=== PATIENT | male | born 1955 | race Caucasian/White ===

== ENCOUNTER → 2017-12-26 | Outpatient (CLI) | payer BC ==
--- NOTE | 2017-12-26 16:28 | MR ---
EXAMINATION TYPE: MR brain wo/w con DATE OF EXAM: 12/26/2017 COMPARISON: NONE HISTORY: Tremors Right Hand,Gadavist 7.5 CONTRAST: Performed utilizing 7.5 mL intravenous Gadavist gadolinium contrast. TECHNIQUE: Multiplanar, multiecho imaging on a 3.0 Ashleigh magnet is performed through the brain. Stud y is performed within 24 hours of arrival to the hospital. The craniovertebral junction is normal. The pituitary is normal. Diffusion-weighted imaging is performed. No abnormal hyperintensity is present to suggest an acute i ntracranial infarct or acute ischemic change. Some vague diffuse increased signal may be within the deep white matter most likely on the basis of c hronic white matter ischemic change. No abnormal enhancement is evident. No mass effect is evident. Temporal horns appear normal. Ventricles and sulci are appropriate for the patient age. IMPRESSIONS: 1. Minimal white matter ischemic type change. 2. No acute intracranial process evident.
== END ==
LOC: RADMRIMAIN 14:48
PROVIDERS: ATTEND Family Medicine
DX: R90.82 White matter disease, unspecified (principal); I67.82 Cerebral ischemia; G25.2 Other specified forms of tremor
CPT/HCPCS: 82565; 70553; 36415; A9581

== ENCOUNTER 2020-06-16 22:53 | Observation (INO) | payer BC, MEDICARE ==
--- NOTE | 2020-06-16 23:10 | ED ---
Chest Pain HPI - General Chief Complaint: Chest Pain Stated Complaint: Chest Pain Time Seen by Provider: 06/16/20 23:09 Source: patient, RN notes reviewed, old records reviewed Mode of arrival: wheelchair Limitations: no limitations - History of Present Illness Initial Comments: This is a 64-year-old male with high blood pressure high cholesterol family history of heart disease coming in with left arm tenderness to going on for a week or so and chest pain started tonight with yesterday and today. Patient gets some tightness and comes and goes with no real shortness of breath or sweating. No prior history of heart disease himself or prior evaluation for heart disease. Patient still having left-sided chest pain here in the ER. No recent fevers travel or sick contacts MD Complaint: chest pain -: days(s) Onset: during rest, during exertion, awoke with symptoms Pain Location: substernal, left chest Pain Radiation: LUE Severity: mild Severity scale (1-10): 2 Quality: tightness, heaviness Consistency: intermittent Worsens With: nothing Context: other (None) Anginal Symptoms: other Other Symptoms: other (None) Treatments Prior to Arrival: none (None) - Related Data Allergies Allergy/AdvReac Type Severity Reaction Status Date / Time No Known Allergies Allergy Verified 06/16/20 22:59 Review of Systems ROS Statement: Those systems with pertinent positive or pertinent negative responses have been documented in the HPI. ROS Other: All systems not noted in ROS Statement are negative. EKG Findings - EKG Comments: EKG Findings:: EKG is sinus bradycardia 55 pr 178 QRS 90 QTC 394 Past Medical History Past Medical History: Hyperlipidemia, Hypertension History of Any Multi-Drug Resistant Organisms: None Reported Past Surgical History: Cholecystectomy, Hernia Repair Past Psychological History: Anxiety Smoking Status: Never smoker Past Alcohol Use History: None Reported Past Drug Use History: None Reported General Exam Limitations: no limitations General appearance: alert, in no apparent distress Head exam: Present: atraumatic, normocephalic, normal inspection Eye exam: Present: normal appearance, PERRL, EOMI. Absent: scleral icterus, conjunctival injection, periorbital swelling ENT exam: Present: normal exam, mucous membranes moist Neck exam: Present: normal inspection. Absent: tenderness, meningismus, lymphadenopathy Respiratory exam: Present: normal lung sounds bilaterally. Absent: respiratory distress, wheezes, rales, rhonchi, stridor Cardiovascular Exam: Present: regular rate, normal rhythm, normal heart sounds. Absent: systolic murmur, diastolic murmur, rubs, gallop, clicks GI/Abdominal exam: Present: soft, normal bowel sounds. Absent: distended, tenderness, guarding, rebound, rigid Extremities exam: Present: normal inspection, full ROM, normal capillary refill. Absent: tenderness, pedal edema, joint swelling, calf tenderness Back exam: Present: normal inspection Neurological exam: Present: alert, oriented X3, CN II-XII intact Psychiatric exam: Present: normal affect, normal mood Skin exam: Present: warm, dry, intact, normal color. Absent: rash Course Vital Signs 06/16/20 06/17/20 22:56 00:05 Temperature 97.6 F 98.1 F Pulse Rate 56 L 55 L Respiratory 18 18 Rate Blood Pressure 153/89 132/79 O2 Sat by Pulse 99 97 Oximetry - Reevaluation(s) Reevaluation #1: 06/17/20 00:26 Medical record is reviewed Reevaluation #2: 06/17/20 00:26 Patient has recurrent and episodic chest pain here in the ER Reevaluation #3: 06/17/20 00:26 Spoke with patient and family regarding findings, questions are answered - Consultations Consultation #1: Spoke with jerry who agrees to admit this patient Chest Pain MDM - MDM 64 male DF for evaluation high blood pressure high cholesterol as well as family history of heart disease and chest pain today. Occasional left arm numbness and tingling. Patient be admitted for cardiac observation Disposition Clinical Impression: Chest pain Disposition: ADMITTED IP TO THIS HOSP Condition: Undetermined Instructions (If sedation given, give patient instructions): Chest Pain (ED) Is patient prescribed a controlled substance at d/c from ED?: No Referrals: Wilmer Martini MD [Primary Care Provider] - 1-2 days
[2020-06-16 23:39] LABS: Basophils # (A) 0.1 k/uL (0-0.2); Basophils % (A) 1 %; Eosinophils # (A) 0.3 k/uL (0-0.7); Eosinophils % (A) 5 %; HCT 50.5 % (39.0-53.0); Lymphocytes # (A) 2.4 k/uL (1.0-4.8); Lymphocytes % (A) 33 %; MCH 31.2 pg (25.0-35.0); MCHC 33.6 g/dL (31.0-37.0); MCV 92.6 fL (80.0-100.0); Mean Platelet Volume 6.9; Monocytes # (A) 0.5 k/uL (0-1.0); Monocytes % (A) 7 %; Neutrophils # (A) 3.9 k/uL (1.3-7.7); Neutrophils % (A) 52 %; Platelet Count 172 k/uL (150-450); RBC 5.46 m/uL (4.30-5.90); RDW 11.9 % (11.5-15.5); WBC 7.4 k/uL (3.8-10.6)
[2020-06-16 23:50] LABS: Albumin 4.2 g/dL (3.5-5.0); Calcium 9.5 mg/dL (8.4-10.2); Potassium 4.5 mmol/L (3.5-5.1); Total Bilirubin 1.7 mg/dL (0.2-1.3); Total Protein 6.6 g/dL (6.3-8.2)
--- NOTE | 2020-06-16 23:51 | XR ---
EXAMINATION TYPE: XR chest 2V DATE OF EXAM: 06/16/2020 COMPARISON: NONE HISTORY: Chest pain TECHNIQUE: 2 views FINDINGS: Heart is normal. Lungs are clear of infiltrate. There is no heart failure. There are no hil ar masses. Costophrenic angles are clear. There are chest leads. IMPRESSION: No active cardiopulmonary disease. Atheromatous aorta.
[2020-06-16 23:56] LABS: INR 0.9 (<1.2); Partial Thromboplastin Time 22.6 sec (22.0-30.0); Prothrombin Time 9.8 sec (9.0-12.0)
[2020-06-17] MEDS ORDERED: ASPIRIN 81 MG PO STA (01:09)
[2020-06-17] MEDS ORDERED: NITROGLYCERIN SL TABS 0.4 MG TAB SUBLINGUAL PRN (01:09)
--- NOTE | 2020-06-17 04:20 | P.HPIM ---
History of Present Illness H&P Date: 06/17/20 The patient is a 64-year-old male with a PMH of hypertension and hyperlipidemia who presents to the ED with complaints of chest discomfort. Patient reports that he has been having occasional nonexertional left-sided chest discomfort for the past 2 months. He notes that the frequency has increased gradually and that has had it multiple times yesterday which brought him to come to the emergency room. He is unable to quantify the pain but notes that it is possibly sharp in nature, nonpleuritic, 2-4 out of 10, nonradiating, with no associated features, and no clear alleviating or exacerbating features. Notes that the pain lasts upwards of 20 seconds at a time. He denied associated shortness of breath, nausea, vomiting, palpitations, or dizziness. Also denied fever, chills, cough, abdominal pain, or diarrhea. He reports no prior heart disease history and no family history of premature coronary artery disease. In the emergency room a chest x-ray was unremarkable with EKG showing sinus bradycardia at [address]/T-wave changes noted as reviewed by me. Laboratory evaluation was reviewed with troponin less than 0.012. Review of Systems Pertinent positives and negatives as discussed in HPI, a complete review of systems was performed and all other systems are negative. Past Medical History Past Medical History: Hyperlipidemia, Hypertension History of Any Multi-Drug Resistant Organisms: None Reported Past Surgical History: Cholecystectomy, Hernia Repair Past Psychological History: Anxiety Smoking Status: Never smoker Past Alcohol Use History: None Reported Past Drug Use History: None Reported - Past Family History Mother Family Medical History: CVA/TIA, Diabetes Mellitus Father Family Medical History: Diabetes Mellitus Medications and Allergies Allergies Allergy/AdvReac Type Severity Reaction Status Date / Time No Known Allergies Allergy Verified 06/16/20 22:59 Physical Exam Vitals: Vital Signs Temp Pulse Pulse Resp BP BP Pulse Ox 06/17/20 01:19 98.1 F 52 L 17 143/85 97 06/17/20 01:05 58 L 18 136/88 98 06/17/20 00:05 98.1 F 55 L 18 132/79 97 06/16/20 22:56 97.6 F 56 L 18 153/89 99 Intake and Output 06/16/20 06/16/20 06/17/20 14:59 22:59 06:59 Other: Weight 79.832 kg 79.832 kg General: non toxic, no distress, appears at stated age, normal weight Derm: no unusual rashes/lesions no unusual ecchymoses, warm, dry Head: atraumatic, normocephalic, symmetric Eyes: EOMI, no lid lag, anicteric sclera, pupils equal round reactive to light ENT: Nose and ears atraumatic, no thrush, no pharyngeal erythema Neck: No thyromegaly, no cervical lymphadenopathy, trachea midline, supple Mouth: no lip lesion, mucus membranes moist Cardiovascular: S1S2 reg, no murmur, positive posterior tibial pulse bilateral, no edema, capillary refill less than 2 seconds Lungs: CTA bilateral, no rhonchi, no rales , no accessory muscle use Abdominal: soft, nontender to palpation, no guarding, no appreciable organomegaly, normal bowel sounds Ext: no gross muscle atrophy, muscle strength 5 out of 5 in all 4 extremities grossly, no contractures, Neuro: CN II-XI grossly intact, light touch intact all 4 extremities, finger to nose within normal limits, Psych: Alert, oriented, appropriate affect Results CBC & Chem 7: 06/16/20 23:21 06/16/20 23:21 Labs: Abnormal Lab Results - Last 24 Hours (Table) 06/16/20 Range/Units 23:21 BUN 22 H (9-20) mg/dL Glucose 113 H (74-99) mg/dL Total Bilirubin 1.7 H (0.2-1.3) mg/dL Thrombosis Risk Factor Assmnt - Choose All That Apply Each Factor Represents 1 point: Obesity (BMI >25) Each Risk Factor Represents 2 Points: Age 61-74 years Each Risk Factor Represents 3 Points: Family history of DVT/PE Other congenital or acquired thrombophilia - If yes, enter type in comment: No Thrombosis Risk Factor Assessment Total Risk Factor Score: 6 Thrombosis Risk Factor Assessment Level: High Risk Assessment and Plan Plan: Chest pain, rule out ACS -Cardiology consult -Cardiac monitoring -Trend troponin -Continue with aspirin Chronic conditions: Hypertension, hyperlipidemia -Continue with home meds DVT prophylaxis -Heparin subq The patient is admitted with an anticipated less than 2 midnight stay for evaluation of chest pain CODE STATUS: Full Code Discussed with: Patient Anticipated discharge date: in am Anticipated discharge place: Home A total of 35 minutes was spent on the care of this complex patient more than 50 % of the time was spent in counseling and care coordination.
[2020-06-17 07:54] VITALS: BP 146/59; PULSE 63; RESP 16; TEMP 97.5
[2020-06-17] MEDS ORDERED: METOPROLOL SUCCINATE (ER) 50 MG TAB.ER.24H PO SCH ×2 (09:00)
[2020-06-17] MEDS ORDERED: lisinopriL 10 MG TAB PO SCH (09:00)
--- NOTE | 2020-06-17 10:43 | ECHOF ---
Referral Reason:chest pain MEASUREMENTS -------- HEIGHT: 175.3 cm WEIGHT: 79.8 kg BP: 143/85 RVIDd: 3.3 cm (< 3.3) IVSd: 1.2 cm (0.6 - 1.1) LVIDd: 4.2 cm (3.9 - 5.3) LVPWd: 1.2 cm (0.6 - 1.1) IVSs: 1.7 cm LVIDs: 2.7 cm LVPWs: 1.6 cm LA Diam: 3.0 cm (2.7 - 3.8) LAESV Index (A-L): 14.67 ml/m Ao Diam: 2.6 cm (2.0 - 3.7) AV Cusp: 1.9 cm (1.5 - 2.6) MV EXCURSION: 20.824 mm (> 18.000) MV EF SLOPE: 121 mm/s (70 - 150) EPSS: 0.3 cm MV E Gaston: 0.71 m/s MV DecT: 231 ms MV A Gaston: 0.53 m/s MV E/A Ratio: 1.32 RAP: 5.00 mmHg RVSP: 26.04 mmHg FINDINGS -------- Sinus rhythm. This was a technically adequate study. The left ventricular size is normal. There is borderline concentric left ventricular hypertrophy. Overall left ventricular systolic function is normal with, an EF between 55 - 60 %. The right ventricle is mildly enlarged. Normal LA size by volume 22+/-6 ml/m2. The right atrial size is normal. Interatrial and interventricular septum intact. Aortic valve is trileaflet and is mildly thickened. Trace amount of aortic regurgitation. The mitral valve is normal. Mild mitral regurgitation is present. Mild tricuspid regurgitation present. Right ventricular systolic pressure is normal at < 35 mmHg. There is no pulmonic regurgitation present. The aortic root size is normal. Normal inferior vena cava with normal inspiratory collapse consistent with estimated right atrial pre ssure of 5 mmHg. There is no pericardial effusion. CONCLUSIONS -------- 1. There is borderline concentric left ventricular hypertrophy. 2. Overall left ventricular systolic function is normal with, an EF between 55 - 60 %. 3. The right ventricle is mildly enlarged. 4. Normal LA size by volume 22+/-6 ml/m2. 5. Trace amount of aortic regurgitation. 6. Mild mitral regurgitation is present. 7. Mild tricuspid regurgitation present. 8. There is no pericardial effusion. SNATH HANDLE ASSEMBLER: Chayito Drake RDCS
--- NOTE | 2020-06-17 10:43 | ECHOS ---
STRESS ECHOCARDIOGRAM INDICATIONS: Chest pain. MEDICATIONS: Lopressor, Vasotec, Lipitor. BASELINE HEART RATE: 58 BASELINE BLOOD PRESSURE: 132/75 MAXIMUM HEART RATE: 152 MAXIMUM BLOOD PRESSURE: 184/73 85% MPHR: 132 100% MPHR: 155 METS: 11.1 MAXIMUM STAGE REACHED: IV TOTAL EXERCISE TIME: 9:32 CLINICAL INFORMATION: Baseline rhythm is a sinus mechanism, rate of 58, normal axis and intervals. Normal echocardiogram. Baseline blood pressure 132/75 mmHg. Patient exercised on Jareth protocol for 9 minutes 32 seconds reaching peak rate 152 beats per minute which is equal to 98% maximum predicted heart rate. Peak blood pressure 184/73 mmHg. Test was terminated due to fatigue. There was no chest pain. Electrocardiograph monitoring revealed rare PVCs. There was no evidence of diagnostic ischemic ST deviation. FINDINGS: Baseline echocardiogram revealed normal wall motion. At peak exercise, there was normal wall motion augmentation with no hypokinesis or dyskinesis. CONCLUSION: 1. One good exercise tolerance with rare PVCs with normal electrocardiograph response to exercise. 2. Normal stress echocardiogram with no evidence of stress-induced ischemia. MMODL / IJN: [id number] /
--- NOTE | 2020-06-17 11:26 | P.CRDCN ---
History of Present Illness Consult date: 06/17/20 Consult reason: chest pain Chief complaint: Chest pain History of present illness: This is a pleasant 64-year-old gentleman with documented history of hypertension, hyperlipidemia, he is a nondiabetic, no smoker, no family history of premature coronary artery disease who presented to the hospital with symptoms of left-sided chest pain which she describes as a pressure sensation with an associated sharp pain. The pain comes and goes, nonradiating, no discomfort in his jaws were in his arm, no radiation to the back. He denies any associated symptoms of shortness of breath, nausea or diaphoresis. Patient states that the symptoms last 15-20 seconds in duration. His chest x-ray on presentation here did not reveal any acute disease EKG showed sinus bradycardia with early repolarization changes. Blood pressure 143/80 heart rate in the 60s respirations 1697% on room air. White blood cell count 7.4, hemoglobin 17, platelet count 172. Sodium 139, potassium 4.5, BUN 22, creatinine 1.0. Magnesium 2.0 troponins negative 3. At the time of my examination this morning, patient is currently free of any chest discomfort. Past Medical History Past Medical History: Hyperlipidemia, Hypertension History of Any Multi-Drug Resistant Organisms: None Reported Past Surgical History: Cholecystectomy, Hernia Repair Past Psychological History: Anxiety Smoking Status: Never smoker Past Alcohol Use History: None Reported Past Drug Use History: None Reported - Past Family History Mother Family Medical History: CVA/TIA, Diabetes Mellitus Father Family Medical History: Diabetes Mellitus Medications and Allergies Home Medications Medication Instructions Recorded Confirmed Type Atorvastatin [Lipitor] 20 mg PO HS 06/17/20 06/17/20 History Enalapril Maleate [Vasotec] 10 mg PO BID 06/17/20 06/17/20 History Metoprolol Tartrate [Lopressor] 50 mg PO BID 06/17/20 06/17/20 History Allergies Allergy/AdvReac Type Severity Reaction Status Date / Time No Known Allergies Allergy Verified 06/17/20 07:38 Physical Exam Vitals: Vital Signs Temp Pulse Pulse Resp BP BP Pulse Ox 06/17/20 07:51 97.5 F L 63 16 146/59 95 06/17/20 01:19 98.1 F 52 L 17 143/85 97 06/17/20 01:05 58 L 18 136/88 98 06/17/20 00:05 98.1 F 55 L 18 132/79 97 06/16/20 22:56 97.6 F 56 L 18 153/89 99 Intake and Output 06/16/20 06/17/20 06/17/20 22:59 06:59 14:59 Other: Voiding Method Toilet Weight 79.832 kg 79.832 kg 79.83 kg PHYSICAL EXAMINATION: GENERAL: 64-year-old gentleman in no acute distress at the time of my examination HEENT: Head is atraumatic, normocephalic. Pupils equal, round. Sclera anicteric. Conjunctiva are clear. Mucous membranes of the mouth are moist. Neck is supple. There is no elevated jugular venous pressure. No carotid bruit is heard. HEART EXAMINATION: Heart S1, S2 normal. No murmur or gallop heard. CHEST EXAMINATION: Lungs are clear to auscultation and precussion. No chest wall tenderness is noted on palpation or with deep breathing. ABDOMEN: Soft, nontender. Bowel sounds are heard. No organomegaly noted. EXTREMITIES: 2+ peripheral pulses with no evidence of peripheral edema and no calf tenderness noted. NEUROLOGIC patient is awake, alert and oriented 3 . . Results 06/16/20 23:21 06/16/20 23:21 Cardiac Enzymes 06/16/20 06/16/20 06/17/20 Range/Units 23:21 23:21 02:30 AST 23 (17-59) U/L Troponin I <0.012 <0.012 (0.000-0.034) ng/mL 06/17/20 Range/Units 05:08 AST (17-59) U/L Troponin I <0.012 (0.000-0.034) ng/mL Coagulation 06/16/20 Range/Units 23:21 PT 9.8 (9.0-12.0) sec APTT 22.6 (22.0-30.0) sec CBC 06/16/20 Range/Units 23:21 WBC 7.4 (3.8-10.6) k/uL RBC 5.46 (4.30-5.90) m/uL Hgb 17.0 (13.0-17.5) gm/dL Hct 50.5 (39.0-53.0) % Plt Count 172 (150-450) k/uL Comprehensive Metabolic Panel 06/16/20 Range/Units 23:21 Sodium 139 (137-145) mmol/L Potassium 4.5 (3.5-5.1) mmol/L Chloride 106 (98-107) mmol/L Carbon Dioxide 26 (22-30) mmol/L BUN 22 H (9-20) mg/dL Creatinine 1.08 (0.66-1.25) mg/dL Glucose 113 H (74-99) mg/dL Calcium 9.5 (8.4-10.2) mg/dL AST 23 (17-59) U/L ALT 26 (4-49) U/L Alkaline Phosphatase 84 (38-126) U/L Total Protein 6.6 (6.3-8.2) g/dL Albumin 4.2 (3.5-5.0) g/dL Current Medications Generic Name Dose Route Start Last Admin Trade Name Freq PRN Reason Stop Dose Admin Aspirin 81 mg 06/18/20 09:00 Aspirin 81 Mg PO DAILY [facility] Atorvastatin Calcium 20 mg 06/17/20 21:00 Atorvastatin 20 Mg Tab PO HS [facility] Lisinopril 10 mg 06/17/20 09:00 06/17/20 08:35 Lisinopril 10 Mg Tab PO 10 mg BID MARY JANE Administration Metoprolol Succinate 50 mg 06/17/20 09:00 06/17/20 10:20 Metoprolol Succinate (Er) 50 Mg Tab.Er.24h PO 50 mg DAILY MARY JANE Administration Nitroglycerin 0.4 mg 06/17/20 01:09 Nitroglycerin Sl Tabs 0.4 Mg Tab SUBLINGUAL Q5M PRN Chest Pain Intake and Output 06/16/20 06/17/20 06/17/20 22:59 06:59 14:59 Other: Voiding Method Toilet Weight 79.832 kg 79.832 kg 79.83 kg Patient Weight 06/18/20 06:59 Weight 79.83 kg 06/16/20 23:21 06/16/20 23:21 EKG Interpretations (text) EKG shows a sinus bradycardia with early repolarization changes Assessment and Plan Plan: Assessment and plan #1 atypical chest pain, troponins negative 3. EKG shows a sinus bradycardia with early repolarization. #2 hypertension #3 hyperlipidemia Plan We will order an echocardiogram with Doppler study as well as a stress echocardiographic study today. Request a lipid panel and sed rate. Further recommendations will be based on the findings of these tests and the patient's overall clinical course. DNP note has been reviewed, I agree with a documented findings and plan of care. Patient was seen and examined.
--- NOTE | 2020-06-17 12:19 | P.DS ---
Providers Date of admission: 06/17/20 01:09 Expected date of discharge: 06/17/20 Attending physician: Adalberto Armas MD Consults: 06/17/20 01:09 Consult Physician Urgent Consulting Provider: Cheri Lazcano Consult Reason/Comments: cp Do you want consulting provider notified?: Yes Primary care physician: Wilmer Martini Hospital Course: Discharge Diagnosis: [ Atypical chest pain Hypertension Hyperlipidemia] Hospital Course: [ This is a pleasant 64-year-old gentleman with documented history of hypertension, hyperlipidemia, he is a nondiabetic, no smoker, no family history of premature coronary artery disease who presented to the hospital with symptoms of left-sided chest pain which she describes as a pressure sensation with an associated sharp pain. Patient was admitted for evaluation of his chest pain. Patient's troponin were negative 3. Patient had a stress echocardiogram done that showed no stress-induced ischemia. At the time of discharge patient denied any chest pain. He was started on aspirin. 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 Patient Condition at Discharge: Undetermined Plan - Discharge Summary Discharge Rx Participant: No New Discharge Prescriptions: New Aspirin 81 mg PO DAILY #30 chew Continue Metoprolol Tartrate [Lopressor] 50 mg PO BID Enalapril Maleate [Vasotec] 10 mg PO BID Atorvastatin [Lipitor] 20 mg PO HS Discharge Medication List Aspirin 81 mg PO DAILY #30 chew 06/17/20 [Rx] Atorvastatin [Lipitor] 20 mg PO HS 06/17/20 [History] Enalapril Maleate [Vasotec] 10 mg PO BID 06/17/20 [History] Metoprolol Tartrate [Lopressor] 50 mg PO BID 06/17/20 [History] Follow up Appointment(s)/Referral(s): Wilmer Martini MD [Primary Care Provider] - 1-2 days Cheri Lazcano MD [STAFF PHYSICIAN] - 1 Week Patient Instructions/Handouts: Chest Pain (ED) Discharge Disposition: HOME SELF-CARE
[2020-06-17] MEDS ORDERED: ATORVASTATIN 20 MG TAB PO SCH (21:00)
[2020-06-18] MEDS ORDERED: ASPIRIN 81 MG PO SCH (09:00)
[2020-06-18] MEDS ORDERED: ASPIRIN 325 MG TAB PO SCH (09:00)
== END 2020-06-17 13:02 | disposition home or self-care (01) ==
LOC: EC 22:53 → 3NCARDOBS 06-17 01:09
PROVIDERS: ADMIT Internal Medicine; ATTEND Internal Medicine
DX: R07.89 Other chest pain (principal); I10 Essential (primary) hypertension; E78.5 Hyperlipidemia, unspecified; R00.1 Bradycardia, unspecified; F41.9 Anxiety disorder, unspecified; I70.0 Atherosclerosis of aorta; E66.9 Obesity, unspecified; Z68.26 Body mass index [BMI] 26.0-26.9, adult; Z79.899 Other long term (current) drug therapy; Z90.49 Acquired absence of other specified parts of digestive tract; Z83.3 Family history of diabetes mellitus; Z82.3 Family history of stroke; Z82.49 Family history of ischemic heart disease and other diseases of the circulatory system
CPT/HCPCS: 93005 ×2; 99285; 36415; 93306; 80053; 85652; 83690; 83735; 84484 ×2; 85025; 85610; 85730; 71046; G0378; C8930; Q9950; 93351